=== PATIENT | female | born 1960 | race Caucasian/White ===

== ENCOUNTER 2020-01-16 08:45 | Outpatient (CLI) | payer OTHER, SELFPAY ==
--- NOTE | 2020-01-18 19:29 | WPDPFTINT ---
PFT Interpretation PFT Interpretation: DOS: 01/16/2020 REQUESTING: Cristina Montanez NP REASON FOR TESTING: Sarcoidosis PULMONARY FUNCTION TESTS Results are reproducible. Spirometry: Normal FEV1 82%, normal FVC 92%, with decreased FEV1%. Severe decrease in AHP97-99%, 40% predicted. Non-statistically significant increase in flows after bronchodilator. Lung volumes: Total lung capacity 115%. Moderate increase in residual volume 149% consistent with air trapping. Increase in airway resistance 299%. Diffusion: DLCO mildly reduced 63%. Flow volume loop: Mild scooping of the expiratory limb. IMPRESSION: Mild obstructive ventilatory impairment which is severe in the small airways, moderate air trapping, increased airway resistance, and mild diffusion impairment. No response to bronchodilator. This does not not preclude use if clinically indicated. Tiffani Santamaria MD
--- NOTE | 2020-01-18 19:37 | P.PCNPFT_ITS ---
PFT Interpretation PFT Interpretation:
--- NOTE | 2020-01-18 19:37 | WPDPFTINT ---
PFT Interpretation PFT Interpretation:
== END 2020-01-16 08:46 | disposition home or self-care (01) ==
PROVIDERS: Visit Provider Nurse Practitioner
DX: D86.0 Sarcoidosis of lung (principal); J98.4 Other disorders of lung
CPT/HCPCS: 94060; 94726; 94729

== ENCOUNTER 2021-01-22 09:32 | Outpatient (CLI) | payer OTHER, SELFPAY ==
--- NOTE | ~2021-01-22 | MM_ITS ---
EXAMINATION: MM screening stew BI w sharyn HISTORY: Screening mammogram, family history of breast cancer in her mother and sister. TECHNIQUE: Craniocaudal and mediolateral oblique 3-D tomosynthesis images were obtained and synthetic 2-D images were generated. CAD analysis was submitted and interpreted. COMPARISON: 12/04/2019, 09/25/2018, 09/17/2017 BREAST PARENCHYMAL COMPOSITION: There are scattered areas of fibroglandular density. FINDINGS: Scattered benign-appearing calcifications are present. There is no evidence of suspicious m ass, calcification, or architectural distortion to suggest malignancy in either breast. There has bee n no suspicious interval change. IMPRESSION: 1. No mammographic evidence of malignancy. 2. Recommend routine screening mammography in one year. BI-RADS Category 2: Benign finding(s). Reviewed, dictated and finalized at location A. DENT MANAGER
== END 2021-01-22 09:33 | disposition home or self-care (01) ==
LOC: ANHIMG 09:35
PROVIDERS: Visit Provider Emergency Medicine
DX: Z12.31 Encounter for screening mammogram for malignant neoplasm of breast (principal)
CPT/HCPCS: 77063; 77067

== ENCOUNTER 2021-03-16 15:59 | Outpatient (CLI) | payer OTHER, SELFPAY ==
--- NOTE | ~2021-03-16 | CT_ITS ---
EXAMINATION: CT lung screening DATE: 03/16/2021 16:17 INDICATION: HX OF TOBACCO DEPENDENCE TECHNIQUE: Computed tomography (CT) of the chest was performed without intravenous contrast. Addition al 3D reconstructions utilizing coronal maximum intensity projection (MIP) were performed. Automated exposure control and iterative reconstruction technique were employed. The dose-length product was 10 8.03 mGy-cm. COMPARISON: 12/11/2019 FINDINGS: A few small bilateral calcified pulmonary nodules consistent with old granulomatous disease. Unchange d linear discoid atelectasis/scarring at the lingula. Unchanged 5 mm noncalcified nodule in the left lower lobe. New 10 x 3 mm lenticular nodule along the cephalad aspect of the right major fissure most likely intrafissural lymph node. There are new small bandlike opacities at the bilateral apices and along the posterior segment of the right upper lobe most consistent with atelectasis/scarring. There is a new cluster of several tiny nodular opacities with tree-in-bud pattern at the posterior right ap ex with associated larger irregular 11 x 5 mm nodular opacity, the tree-in-bud pattern suggesting an infectious/inflammatory etiology. Additional small focus of subtle reticulonodular opacities with eva e-in-bud pattern at the posterior lingula. No pleural effusion. Heart size is normal. No pericardial effusion. Normal caliber thoracic aorta. No pathologically enlarged thoracic lymphadenopathy. Visuali zed upper abdomen is unremarkable. Mild thoracic spondylosis. IMPRESSION: 1. New 11 x 5 mm nodular opacity right apex per Lung RADS criteria, category 4A (Probably suspicious, 5-15% chance of malignancy). The associated with a cluster of additional smaller nodules with tree-i n-bud pattern however favors an infectious/inflammatory etiology. Further evaluation is recommended w ith noncontrast low-dose chest CT in 3months. Reviewed, dictated and finalized at location A. IMPRESSION: 1. New 11 x 5 mm nodular opacity right apex per Lung RADS criteria, category 4A (Probably suspicious, 5-15% chance of malignancy). The associated with a clust er of additional smaller nodules with tree-in-bud pattern however favors an inf ectious/inflammatory etiology. Further evaluation is recommended with noncontra st low-dose chest CT in 3months.
== END 2021-03-16 16:00 | disposition home or self-care (01) ==
PROVIDERS: Visit Provider Emergency Medicine
DX: Z12.2 Encounter for screening for malignant neoplasm of respiratory organs (principal); Z87.891 Personal history of nicotine dependence; R91.8 Other nonspecific abnormal finding of lung field
CPT/HCPCS: 71271

== ENCOUNTER 2021-06-16 12:45 | Outpatient (CLI) | payer OTHER, SELFPAY ==
--- NOTE | ~2021-06-16 | CT_ITS ---
EXAMINATION: CT diagnostic chest wo con DATE: 06/16/2021 13:26 INDICATION: OTHER NONSPECIFIC ABNORMAL FINDINGS OF LUNG FIELD TECHNIQUE: Computed tomography (CT) of the chest was performed without intravenous contrast. Addition al 3D reconstructions utilizing coronal maximum intensity projection (MIP) were performed. Automated exposure control and iterative reconstruction technique were employed. The dose-length product was 13 2.69 mGy-cm. COMPARISON: 03/16/2021 and 12/11/2019 FINDINGS: Again seen is an irregular nodule at the posterior left apex which appears subtly decreased in size o n comparison of all 3 imaging planes this most clearly seen on the sagittal and coronal images. The n odule previously measured 12 x 7 x 13 mm with corresponding measurements on the current study of 12 x 6 x 9 mm. No interval change in a 7 x 5 mm nodule at the lingula and a 5 mm nodule in the left lower lobe. There are 3 thin lenticular likely intrafissural lymph nodes along the right major fissure whi ch measure up to 2 mm in maximal thickness which appear new since the prior study. The previously not ed 10 x 3 mm lenticular nodule more cephalad along the right major fissure, also likely an intrafissu ral lymph node is unchanged. Persistent mild linear atelectasis/scarring at the anterior left apex. S everal scattered small calcified pulmonary nodules in the right lung consistent with old granulomatou s disease. No other new or enlarging pulmonary nodules. No pleural effusion. Heart size is normal. No pericardial effusion. Thoracic aorta is normal in caliber. No pathologically enlarged thoracic lymph adenopathy. IMPRESSION: 1. Slight apparent decrease in size of the previously noted nodule at the posterior right apex which favors a benign etiology most likely infectious or inflammatory in etiology but would recommend rossy nued radiographic follow-up with noncontrast low-dose chest CT in 6 months. Reviewed, dictated and finalized at location A. IMPRESSION: 1. Slight apparent decrease in size of the previously noted nodule at the poste rior right apex which favors a benign etiology most likely infectious or inflam matory in etiology but would recommend continued radiographic follow-up with no ncontrast low-dose chest CT in 6 months.
== END 2021-06-16 12:46 | disposition home or self-care (01) ==
LOC: ANHIMG 12:47
PROVIDERS: Visit Provider Nurse Practitioner
DX: R91.8 Other nonspecific abnormal finding of lung field (principal)
CPT/HCPCS: 71250

== ENCOUNTER 2022-02-14 13:37 | Outpatient (CLI) | payer OTHER, SELFPAY ==
--- NOTE | ~2022-02-14 | CT_ITS ---
EXAMINATION:CT chest high resolution wo ga DATE: 02/14/2022 13:56 INDICATION: Sarcoidosis. TECHNIQUE: Computed tomography (CT) of the chest was performed without intravenous contrast. Automate d exposure control and iterative reconstruction technique were employed. The dose-length product (DLP ) was 237.16 mGy-cm. COMPARISON: Chest CT 06/16/2021 FINDINGS: Again seen is mild scarring at the lung apices. Calcified bilateral lung nodules and calcif ied hilar lymph nodes are consistent with old granulomatous disease. There is a chronic small cluster of tree-in-bud opacities in posterior segment right upper lobe. There is a stable 5 mm nodule in lef t lower lobe, likely benign. There is a stable 7 mm nodule at right major fissure, likely benign. No pleural effusion. The heart size is normal. No pericardial effusion. There are no pathologically enla rged lymph nodes. There is a 2.6 cm cyst in left kidney. There is moderate thoracic spondylosis. IMPRESSION: 1. Stable mild scarring at the lung apices. Reviewed, dictated and finalized at location A.
== END 2022-02-14 13:38 | disposition home or self-care (01) ==
PROVIDERS: Visit Provider Nurse Practitioner
DX: D86.9 Sarcoidosis, unspecified (principal); R91.8 Other nonspecific abnormal finding of lung field
CPT/HCPCS: 71250

== ENCOUNTER 2022-03-08 13:26 | Outpatient (CLI) | payer OTHER, SELFPAY ==
--- NOTE | ~2022-03-08 | MM_ITS ---
EXAMINATION: MM screening stew BI w sharyn HISTORY: Screening mammogram TECHNIQUE: Craniocaudal and mediolateral oblique 3-D tomosynthesis images were obtained and synthetic 2-D images were generated. CAD analysis was submitted and interpreted. COMPARISON: 01/22/2021, 12/04/2019, 09/25/2018 bilateral screening mammogram examinations BREAST PARENCHYMAL COMPOSITION: There are scattered areas of fibroglandular density. FINDINGS: Scattered bilateral benign calcifications. There is no evidence of suspicious mass, calcifi cation, or architectural distortion to suggest malignancy in either breast. There has been no suspici ous interval change. IMPRESSION: 1. No mammographic evidence of malignancy. 2. Recommend routine screening mammography in one year. BI-RADS Category 2: Benign finding(s). Reviewed, dictated and finalized at location A.
== END 2022-03-08 13:27 | disposition home or self-care (01) ==
LOC: ANHIMG 13:27
PROVIDERS: Visit Provider Emergency Medicine
DX: Z12.31 Encounter for screening mammogram for malignant neoplasm of breast (principal)
CPT/HCPCS: 77063; 77067

== ENCOUNTER 2023-02-03 10:49 | Outpatient (CLI) | payer OTHER, SELFPAY ==
--- NOTE | ~2023-02-03 | DEXA_ITS ---
Bone Density Report Name: PAOLA WORLEY Age: 62 Sex: Female Ethnicity: White Date of : 1960 Indication: postmenopausal; screening for osteoporosis; Referring Provider: DALILA MEDRANO Study: Bone densitometry was performed. Exam Date: February 03, 2023 Accession number: [id number] Bone Density: Region BMD T-score Z-score Classification AP Spine(L1-L4) 0.995 -0.5 1.1 Normal Femoral Neck (Left) 0.726 -1.1 0.3 Osteopenia Total Hip (Left) 0.874 -0.6 0.5 Normal Femoral Neck (Right) 0.761 -0.8 0.6 Normal Total Hip (Right) 0.912 -0.2 0.9 Normal Total Hip Mean 0.893 -0.4 0.7 Normal World Health Organization criteria for BMD impression classify patients as: Normal (T-score at or above -1.0), Osteopenia (T-score between -1.0 and -2.5), or Osteoporosis (T-score at or below -2.5). 10-year Fracture Risk(1): Major Osteoporotic Fracture 7.5% Hip Fracture 0.9% Reported Risk Factors: [place] (), Neck BMD=0.726, BMI=30.1, smoking (1) FRAX(R) Version 3.08. Fracture probability calculated for an untreated patient. Fracture probability may be lower if the patient has received treatment. Clinical Information Provided by Patient: Smokes Has used the following medications: Vitamin D Patient maximum height was 68.5 Menopause Age: 49 Drinks caffeinated beverages Onset of menses at age 13 Number of children 2 Impression: UNAPPROVED The patient has low bone mass, based on the Left Femoral Neck T-score. The patient has an estimated ten-year risk of hip fracture of 0.9% and an estimated ten-year risk of major fracture of 7.5%, based on the WHO FRAX algorithm. The patient has risk factors, including: smoking. Discussion: UNAPPROVED BONE DENSITY IS LOW AT ONE OR MORE SKELETAL SITES. This patient's lowest T-score is low at one or more skeletal sites. It meets the World Health Organization's (WHO) criteria for ?low bone mass? (T-score between -1.0 and -2.5). The patient's 10-year risk of fracture as calculated by FRAX is less than the threshold where pharmacological therapy is recommended by the National Osteoporosis Foundation (NOF). However, all treatment decisions require clinical judgment and consideration of individual patient factors, including patient preferences, comorbidities, previous drug use, risk factors not captured in the FRAX model (e.g., frailty, falls, vitamin D deficiency, increased bone turnover, interval significant decline in bone density) and possible under or overestimation of fracture risk by FRAX. The patient should follow a healthful lifestyle (good nutrition with adequate calcium and vitamin D, and appropriate weight-bearing exercise). Follow-Up: UNAPPROVED Consider repeating this study in 2 to 3 years to reassess this patient's status, or sooner if there is
== END 2023-02-03 10:50 | disposition home or self-care (01) ==
PROVIDERS: Visit Provider Emergency Medicine
DX: M85.852 Other specified disorders of bone density and structure, left thigh (principal)
CPT/HCPCS: 77080

== ENCOUNTER 2023-02-16 09:23 | Outpatient (CLI) | payer OTHER, SELFPAY ==
--- NOTE | ~2023-02-16 | CT_ITS ---
CT Scan of the Chest without Contrast: Clinical Indication: Solitary pulmonary nodule Technique: Contiguous sections were acquired throughout the chest without intravenous contrast. Dose reduction technique was used on this scan by utilizing automated exposure control and iterative recon struction technique. The dose-length product (DLP) was 133.78 mGy-cm. COMPARISON: 02/14/2022 and 03/16/2021 Findings: There is no evidence of any significant mediastinal, hilar or axillary lymphadenopathy. There are ath erosclerotic calcifications of the aorta. There is no evidence of pleural or pericardial effusion. Stable biapical scarring noted. Stable nodule along the right major fissure noted posteriorly. Severa l calcified granulomas are noted. Stable 5 mm left lower lobe pulmonary nodule (axial image 73). Images through the upper abdomen reveal no abnormalities. Impression: Subcentimeter pulmonary nodules and areas of focal scarring, which are stable since 03/08/2021. Stabil ity over this time interval is compatible with benignity. Reviewed, dictated and finalized at location . Impression: Subcentimeter pulmonary nodules and areas of focal scarring, which are stable s inocente 03/08/2021. Stability over this time interval is compatible with benignity.
== END 2023-02-16 09:24 | disposition home or self-care (01) ==
PROVIDERS: Visit Provider Emergency Medicine
DX: R91.8 Other nonspecific abnormal finding of lung field (principal)
CPT/HCPCS: 71250

== ENCOUNTER 2023-06-25 09:02 | Outpatient (CLI) | payer OTHER, SELFPAY ==
--- NOTE | ~2023-06-25 | MM_ITS ---
EXAMINATION: MM screening stew BI w sharyn HISTORY: Screening mammogram, family history of breast cancer in her mother and sister. TECHNIQUE: Craniocaudal and mediolateral oblique 3-D tomosynthesis images were obtained and synthetic 2-D images were generated. CAD analysis was submitted and interpreted. COMPARISON: 03/08/2022, 01/22/2021 BREAST PARENCHYMAL COMPOSITION: There are scattered areas of fibroglandular density. FINDINGS: Scattered benign-appearing calcifications are present. No suspicious mass, calcification, o r architectural distortion are identified in either breast to suggest malignancy. There has been no s uspicious interval change. IMPRESSION: 1. No mammographic evidence of malignancy. 2. Recommend routine screening mammography in one year. BI-RADS Category 2: Benign finding(s). Reviewed, dictated and finalized at location A.
== END 2023-06-25 09:03 | disposition home or self-care (01) ==
LOC: ANHIMG 09:04
PROVIDERS: Visit Provider Emergency Medicine
DX: Z12.31 Encounter for screening mammogram for malignant neoplasm of breast (principal)
CPT/HCPCS: 77063; 77067

== ENCOUNTER 2024-02-07 07:27 | Outpatient (CLI) | payer OTHER, SELFPAY | END 2024-02-07 07:28 | disposition home or self-care (01) | PROVIDERS: Visit Provider Emergency Medicine | DX: M25.561 Pain in right knee (principal) | CPT/HCPCS: 73562 ==

== ENCOUNTER 2024-02-20 16:08 | Outpatient (CLI) | payer OTHER, SELFPAY ==
--- NOTE | ~2024-02-20 | CT_ITS ---
EXAMINATION:CT lung screening DATE: 02/20/2024 16:26 INDICATION: Personal history of nicotine dependence. TECHNIQUE: Computed tomography (CT) of the chest was performed without intravenous contrast. Automate d exposure control and iterative reconstruction technique were employed. The dose-length product (DLP ) was 90.21 mGy-cm. COMPARISON: None currently available. FINDINGS: There is mild emphysema. There are clusters of nodules in the lung apices and in the lower lobes. The largest lung nodule measures 6 mm. Calcified pulmonary nodules are consistent with old gra nulomatous disease. No pleural effusion. The heart size is normal. No pericardial effusion. There are cysts in the kidneys measuring up to 3.6 cm on the left. Aortic atherosclerosis is noted. There is m oderate thoracic spondylosis. IMPRESSION: 1. Lung-RADS category 3: Probably benign. Further evaluation is recommended with noncontrast low-dose chest CT in 6 months. Reviewed, dictated and finalized at location A. IMPRESSION: 1. Lung-RADS category 3: Probably benign. Further evaluation is recommended wit h noncontrast low-dose chest CT in 6 months.
== END 2024-02-20 16:09 | disposition home or self-care (01) ==
LOC: ANHIMG 16:10
PROVIDERS: Visit Provider Emergency Medicine
DX: Z12.2 Encounter for screening for malignant neoplasm of respiratory organs (principal); Z87.891 Personal history of nicotine dependence
CPT/HCPCS: 71271

== ENCOUNTER 2024-04-21 15:59 | Outpatient (CLI) | payer OTHER, SELFPAY ==
--- NOTE | ~2024-04-21 | CT_ITS ---
CT Scan of the Chest without Contrast: Clinical Indication: Solitary pulmonary nodule Technique: Contiguous sections were acquired throughout the chest without intravenous contrast. Dose reduction technique was used on this scan by utilizing automated exposure control and iterative recon struction technique. The dose-length product (DLP) was 176.36 mGy-cm. COMPARISON: 02/20/2024 Findings: There is no evidence of any significant mediastinal, hilar or axillary lymphadenopathy. The mediastin al soft tissues appear normal. There is no evidence of pleural or pericardial effusion. Focal biapical nodularity is improved from prior exam, with mild residual scarring. Scattered calcifi ed granulomas are again present. Stable 3 mm left lower lobe pulmonary nodule. Images through the upper abdomen reveal no abnormalities. Impression: Stable 3 mm left lower lobe pulmonary nodule. Other subcentimeter pulmonary nodules are improved from prior exam. Reviewed, dictated and finalized at [facility]. Impression: Stable 3 mm left lower lobe pulmonary nodule. Other subcentimeter pulmonary nod ules are improved from prior exam.
== END 2024-04-21 16:00 | disposition home or self-care (01) ==
LOC: ANHIMG 16:08
PROVIDERS: Visit Provider Emergency Medicine
DX: R91.1 Solitary pulmonary nodule (principal)
CPT/HCPCS: 71250; 73100

== ENCOUNTER 2024-04-21 16:11 | Outpatient (CLI) | payer OTHER, SELFPAY ==
--- NOTE | ~2024-04-21 | XR_ITS ---
EXAM: XR wrist RT 2V DATE: 04/21/2024 16:28 HISTORY: RT radial fracture . COMPARISON: None available. FINDINGS: Decreased mineralization. Cortical irregularity at the distal right radial metaphysis with suggestion of a mostly transversely oriented linear lucency. No definite intra-articular extension. No lytic or blastic lesion. Joint spaces are maintained. No erosion or periosteal change. Soft tissue s within normal limits. IMPRESSION: Subtle transverse distal right radial metaphyseal fracture of uncertain age, may represen t an acute nondisplaced fracture or subacute fracture in the process of healing. Correlate with histo ry. Correlation with outside studies would be helpful. Reviewed, dictated and finalized at location K. IMPRESSION: Subtle transverse distal right radial metaphyseal fracture of uncer tain age, may represent an acute nondisplaced fracture or subacute fracture in the process of healing. Correlate with history. Correlation with outside studie s would be helpful.
== END 2024-04-21 16:12 | disposition home or self-care (01) ==
LOC: ANHIMG 16:16
PROVIDERS: Visit Provider Emergency Medicine
DX: S52.591A Other fractures of lower end of right radius, initial encounter for closed fracture (principal)
CPT/HCPCS: 73100

== ENCOUNTER 2024-07-25 16:04 | Outpatient (CLI) | payer OTHER, SELFPAY ==
--- NOTE | ~2024-07-25 | US_ITS ---
EXAMINATION: US soft tissue head and neck DATE: 07/25/2024 16:35 INDICATION: Nodule behind the left ear TECHNIQUE: Multiple grayscale and Doppler ultrasound images of the left periauricular region of chela rn were obtained. COMPARISON: None FINDINGS: There is a 3.0 x 1.7 x 1.9 cm heterogeneously hypoechoic mass along the posterior inferior aspect of the left parotid gland. There is a minimal amount of internal vascular flow on color Doppler. No othe r abnormal masses or fluid collections identified. IMPRESSION: 1. Indeterminate 3.0 x 1.7 x 1.9 cm mass along the inferolateral carotid most likely related to parot id neoplasm either benign or malignant. Recommend ultrasound-guided fine-needle aspiration for furthe r evaluation. Reviewed, dictated and finalized at location A. IMPRESSION: 1. Indeterminate 3.0 x 1.7 x 1.9 cm mass along the inferolateral carotid most l ikely related to parotid neoplasm either benign or malignant. Recommend ultraso und-guided fine-needle aspiration for further evaluation.
== END 2024-07-25 16:05 | disposition home or self-care (01) ==
LOC: ANHIMG 16:05
PROVIDERS: Visit Provider Emergency Medicine
DX: R22.0 Localized swelling, mass and lump, head (principal)
CPT/HCPCS: 76536

== ENCOUNTER 2024-08-07 14:18 | Outpatient (CLI) | payer OTHER, SELFPAY ==
--- NOTE | ~2024-08-07 | MM_ITS ---
EXAMINATION: MM screening stew BI w sharyn HISTORY: Screening mammogram, family history of breast cancer in her mother and sister. TECHNIQUE: Craniocaudal and mediolateral oblique 3-D tomosynthesis images were obtained and synthetic 2-D images were generated. CAD analysis was submitted and interpreted. COMPARISON: 06/25/2023, 03/08/2022, 01/22/2021, 12/04/2019 BREAST PARENCHYMAL COMPOSITION:Not Dense. There are scattered areas of fibroglandular density. FINDINGS: No suspicious mass, calcification, or architectural distortion are identified in either traci ast to suggest malignancy. There has been no suspicious interval change. IMPRESSION: No mammographic evidence of malignancy. Recommend routine screening mammography in one year. BI-RADS Category 1: Negative Reviewed, dictated and finalized at [facility].
== END 2024-08-07 14:19 | disposition home or self-care (01) ==
LOC: ANHIMG 14:19
PROVIDERS: Visit Provider Emergency Medicine
DX: Z12.31 Encounter for screening mammogram for malignant neoplasm of breast (principal)
CPT/HCPCS: 77063; 77067